=== PATIENT | female | born 1985 | race Two or more races ===

== ENCOUNTER 2022-07-28 08:31 | Outpatient (CLI) | payer OTHER | END 2022-07-28 08:40 | disposition home or self-care (01) | LOC: SONOGRAMA 08:31 | PROVIDERS: ATTEND Pathology Anatomic Pathology & Clinical Pathology | DX: D11.9 Benign neoplasm of major salivary gland, unspecified (principal); D44.2 Neoplasm of uncertain behavior of parathyroid gland ==